=== PATIENT | male | born 1950 | race Caucasian/White ===

== ENCOUNTER 2017-12-27 20:05 | Observation (INO) | payer OTHER, BC ==
[2017-12-27] MEDS ORDERED: ASPIRIN 81 MG CHEWABLE TABLET ONE ×2 (21:10)
[2017-12-27 21:22] LABS: Absolute Lymphocytes (CBC) 1.8 K/uL (0.7-4.9); Absolute Monocytes 0.7 K/uL (0.1-1.3); Absolute Neutrophil 9.4 K/uL (1.8-8.0); Basophils % 0.5 % (0-1.3); Eosinophils % 0.3 % (0-4.4); Lymphocytes % 15.2 % (15.3-44.8); MCH 29.1 pg (27.0-35.0); MPV 9.8 fL (7.6-11.3); Monocytes % 6.1 % (3.3-12.3); RBC Red Blood Cell Count 5.64 M/uL (4.33-5.43)
[2017-12-27 21:24] LABS: Urine Blood 2+ (NEG); Urine Glucose NEGATIVE (NEG); Urine Protein NEGATIVE (NEG); Urine pH 5.5 (5.0-7.0)
[2017-12-27 21:34] LABS: Protime INR 1.07
--- NOTE | 2017-12-27 21:37 | RAD REPORT ---
EXAM DESCRIPTION: RAD - Chest Single View - 12/27/2017 9:21 pm CLINICAL HISTORY: SOB Chest pain. COMPARISON: No comparisons FINDINGS: Portable technique limits examination quality. The lungs are grossly clear. The heart is normal in size. No displaced fractures. IMPRESSION: No acute intrathoracic process suspected.
[2017-12-27 21:42] LABS: Albumin 4.4 g/dL (3.4-5.0); Bilirubin Direct 0.2 mg/dL (0-0.2); Bilirubin Total 0.5 mg/dL (0.2-1.0); CKMB Creatine Kinase MB 4.2 ng/mL (0.3-3.6); Magnesium 2.3 mg/dL (1.8-2.4); Potassium 4.1 mmol/L (3.5-5.1); Protein, Total 8.5 g/dL (6.4-8.2)
[2017-12-27] MEDS ORDERED: IPRATROPIUM BROM 0.5MG/2.5ML ONE (22:47)
[2017-12-27] MEDS ORDERED: ALBUTEROL 2.5 MG/3 ML NEB SOL ONE (22:47)
--- NOTE | 2017-12-28 01:02 | ER ---
Nurse's Notes [facility] Name: Lino Parker Age: 67 yrs Sex: Male : 1950 Arrival Date: 12/27/2017 Time: 20:10 Bed 27 Private MD: Diagnosis: Shortness of breath Presentation: 12/27 20:13 Presenting complaint: Patient states: Shortness of breath x 2 days. denies pain. Took a tl2 lasix this morning. Transition of care: patient was not received from another setting of care. Onset of symptoms was December 25, 2017. Risk Assessment: Do you want to hurt yourself or someone else? Patient reports no desire to harm self or others. Initial Sepsis Screen: Does the patient meet any 2 criteria? No. Patient's initial sepsis screen is negative. Does the patient have a suspected source of infection? No. Patient's initial sepsis screen is negative. Care prior to arrival: None. 20:13 Method Of Arrival: Ambulatory tl2 20:13 Acuity: ERNESTINE 3 tl2 Triage Assessment: 20:17 General: Appears in no apparent distress. comfortable, Behavior is calm, cooperative, tl2 appropriate for age. Pain: Denies pain. Respiratory: Reports shortness of breath Airway is patent Respiratory effort is even, unlabored, Respiratory pattern is regular, symmetrical, Onset: The symptoms/episode began/occurred yesterday, the patient has mild shortness of breath. Historical: - Allergies: 20:17 No Known Allergies; tl2 - Home Meds: 20:17 Januvia 100 mg Oral tab 1 tab once daily [Active]; tamsulosin 0.4 mg Oral cp24 1 cap tl2 BID [Active]; simvastatin 20 mg Oral tab 1 tab once daily [Active]; glipizide 10 mg Oral tab 1 tab once daily [Active]; finasteride 5 mg Oral tab 1 tab once daily [Active]; Lasix 80 mg Oral tab 1 tab PRN [Active]; - PMHx: 20:17 Diabetes - NIDDM; tl2 - PSHx: 20:17 None; tl2 - Immunization history:: Adult Immunizations up to date. - Social history:: Smoking status: Patient/guardian denies using tobacco. - Ebola Screening: : No symptoms or risks identified at this time. Screenin/25 01:34 Abuse screen: Denies threats or abuse. Denies injuries from another. Nutritional mg2 screening: No deficits noted. Tuberculosis screening: No symptoms or risk factors identified. Fall Risk Assessment: 12/27 20:55 General: Appears in no apparent distress. Behavior is calm. Pain: Complains of pain in cr4 right flank Pain does not radiate. Pain currently is 5 out of 10 on a pain scale. Quality of pain is described as aching, Pain began 2-3 days ago. Is continuous. Neuro: Level of Consciousness is awake, alert, obeys commands, Oriented to person, place, time, [employer] Supervisor are equal bilaterally Denies weakness blurred vision dizziness, difficulty swallowing, numbness headache. Cardiovascular: Reports shortness of breath, Denies chest pain, lightheadedness, nausea, palpitations, Heart tones S1 S2 Rhythm is regular. Respiratory: Airway is patent Respiratory effort is even, unlabored, Respiratory pattern is regular. Respiratory: Breath sounds are clear bilaterally. GI: Patient currently denies nausea, pain. : Denies burning with urination, discharge, incontinence. EENT: Denies pain blurred vision photophobia. Derm: No deficits noted. Musculoskeletal: No deficits noted. 22:00 Reassessment: No changes from previously documented assessment. Patient and/or family cr4 updated on plan of care and expected duration. Pain level reassessed. Patient is alert, oriented x 3, equal unlabored respirations, skin warm/dry/pink. 23:00 Reassessment: Patient stated he was feeling more SOB, patient had to get up and sit in cr4 chair. SOB improved slightly sats remained 93-95%.Carlo Page notified.. 12/28 01:04 Reassessment: Patient appears in no apparent distress at this time. Patient and/or mg2 family updated on plan of care and expected duration. Pain level reassessed. Patient is alert, oriented x 3, equal unlabored respirations, skin warm/dry/pink. 01:32 Reassessment: Patient appears in no apparent distress at this time. Patient and/or mg2 family updated on plan of care and expected duration. Pain level reassessed. Patient is alert, oriented x 3, equal unlabored respirations, skin warm/dry/pink. dr wang at bedside examining the patient. 02:11 Reassessment: Patient appears in no apparent distress at this time. Patient and/or mg2 family updated on plan of care and expected duration. Pain level reassessed. Patient is alert, oriented x 3, equal unlabored respirations, skin warm/dry/pink. Vital Signs: 12/27 20:17 BP 155 / 109; Pulse 108; Resp 20; Temp 98.5; Pulse Ox 97% on R/A; Weight 102.06 kg; tl2 Height 5 ft. 7 in. (170.18 cm); Pain 0/10; 22:00 BP 157 / 92 LA Sitting (auto/reg); Pulse 83 MON; Resp 22 S; Pulse Ox 90% on R/A; Pain jp3 0/10; 23:15 BP 163 / 83; Pulse 94; Pulse Ox 94% ; Pain 3/10; cr4 12/28 01:04 Pulse 95; Resp 18; Pulse Ox 98% on R/A; Pain 0/10; mg2 01:33 BP 154 / 109; Pulse 101; Resp 18; Pulse Ox 97% on R/A; Pain 0/10; mg2 02:12 BP 140 / 86; Pulse 101; Resp 18; Temp 97.8(O); Pain 0/10; mg2 12/27 20:17 Body Mass Index 35.24 (102.06 kg, 170.18 cm) tl2 ED Course: 12/27 20:10 Patient arrived in ED. es 20:15 Triage completed. tl2 20:17 Arm band placed on right wrist. tl2 20:54 Carlo Landeros PA is PHCP. cp 20:54 Carlo Baumann MD is Attending Physician. cp 21:04 Austin Romero, YOLANDE is Primary Nurse. mg2 21:17 XRAY Chest (1 view) In Process Unspecified. EDMS 21:17 Inserted saline lock: 20 gauge in right forearm, using aseptic technique. Blood tl2 collected. 21:48 Urine Dipstick--Ancillary (enter results) Sent. jp3 23:46 Radiology exam delayed due to Labs being drawn at this time. kw1 12/28 00:[address] via wheelchair. kw1 00:09 CT completed. Patient tolerated procedure well. Patient moved back from CT. kw1 00:11 CT Chest For PE Angio In Process Unspecified. EDMS 01:01 Matt Guevara MD is Hospitalizing Provider. cp 01:34 Patient has correct armband on for positive identification. Bed in low position. mg2 02:10 No provider procedures requiring assistance completed. Patient admitted, IV remains in mg2 place. Administered Medications: 12/27 21:27 Drug: Aspirin Chewable Tablet 324 mg Route: PO; cr4 12/28 00:26 Follow up: Response: No adverse reaction mg2 12/27 22:48 Drug: Albuterol - atroVENT (3:1) (2.5 mg - 0.5 mg) 3 ml Route: Nebulizer; cr4 23:58 Follow up: Response: Other cr4 12/28 01:30 Drug: Lovenox 40 mg Route: Sub-Q; Site: left lower abdomen; mg2 02:08 Follow up: Response: No adverse reaction mg2 Outcome: 01:01 Decision to Hospitalize by Provider. cp 02:11 Admitted to Med/surg accompanied by tech, via wheelchair, room 205, with chart, Report mg2 called to YOLANDE Bales 02:11 Condition: stable 02:11 Instructed on the need for admit, Demonstrated understanding of instructions. 02:29 Patient left the ED. mg2 Signatures: Dispatcher [employer] Olive Motta Claudia, RN RN cr4 Carlo Landeros PA PA Dina Poole, RN RN tl2 Alexus Valladares kw1 Austin Romero, YOLANDE RN mg2 Lenny Weiner jp3
--- NOTE | 2017-12-28 01:02 | EDPHYS ---
Physician Documentation [facility] Name: Lino Parker Age: 67 yrs Sex: Male : 1950 Arrival Date: 12/27/2017 Time: 20:10 Bed 27 Private MD: ED Physician Carlo Baumann HPI: 12/27 21:15 This 67 yrs old Male presents to ER via Ambulatory with complaints of cp Breathing Difficulty. 21:15 The patient has shortness of breath at rest. cp 21:15 Onset: The symptoms/episode began/occurred 2 day(s) ago. Duration: The symptoms are cp continuous, and are steadily getting worse. Associated signs and symptoms: Pertinent negatives: chest pain, productive cough, diaphoresis, dizziness, fever, hemoptysis, vomiting. Severity of symptoms: in the emergency department the symptoms are unchanged despite home interventions, took previously prescribed Lasix. Historical: - Allergies: 20:17 No Known Allergies; tl2 - Home Meds: 20:17 Januvia 100 mg Oral tab 1 tab once daily [Active]; tamsulosin 0.4 mg Oral cp24 1 cap tl2 BID [Active]; simvastatin 20 mg Oral tab 1 tab once daily [Active]; glipizide 10 mg Oral tab 1 tab once daily [Active]; finasteride 5 mg Oral tab 1 tab once daily [Active]; Lasix 80 mg Oral tab 1 tab PRN [Active]; - PMHx: 20:17 Diabetes - NIDDM; tl2 - PSHx: 20:17 None; tl2 - Immunization history:: Adult Immunizations up to date. - Social history:: Smoking status: Patient/guardian denies using tobacco. - Ebola Screening: : No symptoms or risks identified at this time. ROS: 21:20 Constitutional: Negative for body aches, chills, fever, poor PO intake. cp 21:20 Eyes: Negative for injury, pain, redness, and discharge. cp 21:20 ENT: Negative for drainage from ear(s), ear pain, sore throat, difficulty swallowing, difficulty handling secretions. 21:20 Cardiovascular: Negative for chest pain, edema, palpitations. 21:20 Respiratory: Positive for orthopnea, shortness of breath, at rest. Negative for cough, wheezing. 21:20 Abdomen/GI: Negative for abdominal pain, nausea, vomiting, and diarrhea, black/tarry stool, rectal bleeding. 21:20 Back: Negative for pain at rest, pain with movement, radiated pain. 21:20 : Negative for urinary symptoms. 21:20 Skin: Negative for cellulitis, rash. 21:20 Neuro: Negative for altered mental status, dizziness, headache, syncope, near syncope, weakness. 21:20 All other systems are negative. Exam: 21:28 Constitutional: The patient appears in no acute distress, alert, awake, comfortable, cp non-diaphoretic, non-toxic, well developed, well nourished. 21:28 Head/Face: Normocephalic, atraumatic. Eyes: Pupils equal round and reactive to light, cp extra-ocular motions intact. Lids and lashes normal. Conjunctiva and sclera are non-icteric and not injected. Cornea within normal limits. Periorbital areas with no swelling, redness, or edema. ENT: Nares patent. No nasal discharge, no septal abnormalities noted. Tympanic membranes are normal and external auditory canals are clear. Oropharynx with no redness, swelling, or masses, exudates, or evidence of obstruction, uvula midline. Mucous membranes moist. Chest/axilla: Normal chest wall appearance and motion. Nontender with no deformity. No lesions are appreciated. 21:28 Cardiovascular: Rate: tachycardic, Rhythm: regular, Pulses: Pulses are 2+ in right radial artery and left radial artery. Heart sounds: murmur, not appreciated, Edema: is not appreciated, JVD: is not appreciated. 21:28 Respiratory: the patient does not display signs of respiratory distress, Respirations: labored breathing, is not present, intercostal retractions, are absent, shallow respirations, are not present, splinting, is not noted, tachypnea, is not appreciated, Breath sounds: rales, are not appreciated, decreased breath sounds, that are mild, are located in both bases, rhonchi, are not appreciated, stridor, is not appreciated. 21:28 Abdomen/GI: Inspection: abdomen appears normal, Bowel sounds: active, all quadrants, Palpation: abdomen is soft and non-tender, in all quadrants. 21:28 Back: pain, is absent, ROM is normal. 21:28 Skin: cellulitis, is not appreciated, no rash present. 21:28 Neuro: Orientation: to person, place \T\ time. Mentation: lucid, able to follow commands, Cerebellar function: is grossly normal, Motor: moves all fours, strength is normal, Sensation: is normal. 21:33 ECG was reviewed by the Attending Physician. cp Vital Signs: 20:17 BP 155 / 109; Pulse 108; Resp 20; Temp 98.5; Pulse Ox 97% on R/A; Weight 102.06 kg; tl2 Height 5 ft. 7 in. (170.18 cm); Pain 0/10; 22:00 BP 157 / 92 LA Sitting (auto/reg); Pulse 83 MON; Resp 22 S; Pulse Ox 90% on R/A; Pain jp3 0/10; 23:15 BP 163 / 83; Pulse 94; Pulse Ox 94% ; Pain 3/10; cr4 12/28 01:04 Pulse 95; Resp 18; Pulse Ox 98% on R/A; Pain 0/10; mg2 01:33 BP 154 / 109; Pulse 101; Resp 18; Pulse Ox 97% on R/A; Pain 0/10; mg2 02:12 BP 140 / 86; Pulse 101; Resp 18; Temp 97.8(O); Pain 0/10; mg2 12/27 20:17 Body Mass Index 35.24 (102.06 kg, 170.18 cm) tl2 MDM: 12/27 20:57 Patient medically screened. [facility] 12/28 00:55 Data reviewed: vital signs, nurses notes, lab test result(s), EKG, radiologic studies, cp CT scan, plain films, and as a result, I will admit patient. 00:55 Physician consultation: Matt Guevara MD was contacted at 00:55, regarding admission, cp to the telemetry unit. patient's condition. 12/27 20:59 Order name: Basic Metabolic Panel; Complete Time: 22:37 cp 12/27 23:13 Interpretation: Normal except: GLUC 165; GFR 67. 12/27 20:59 Order name: CBC with Diff; Complete Time: 22:37 cp 12/27 20:59 Order name: Ckmb; Complete Time: 22:37 cp 12/27 20:59 Order name: CPK; Complete Time: 22:37 12/27 20:59 Order name: LFT's; Complete Time: 22:37 12/27 20:59 Order name: Magnesium; Complete Time: 22:37 cp 12/27 20:59 Order name: NT PRO-BNP; Complete Time: 22:37 cp 12/27 20:59 Order name: PT-INR; Complete Time: 22:37 cp 12/27 20:59 Order name: Ptt, Activated; Complete Time: 22:37 cp 12/27 20:59 Order name: Troponin (emerg Dept Use Only); Complete Time: 22:37 cp 12/27 20:59 Order name: XRAY Chest (1 view); Complete Time: 22:37 cp 12/27 21:22 Order name: Urine Dipstick--Ancillary (enter results) mw2 12/27 21:22 Order name: Urine Dipstick-Ancillary; Complete Time: 22:37 EDMS 12/27 20:59 Order name: EKG; Complete Time: 20:59 cp 12/27 20:59 Order name: Cardiac monitoring; Complete Time: 21:22 cp 12/27 20:59 Order name: EKG - Nurse/Tech; Complete Time: 21:48 cp 12/27 20:59 Order name: IV Saline Lock; Complete Time: 21:16 cp 12/27 20:59 Order name: Labs collected and sent; Complete Time: 21:17 cp 12/27 20:59 Order name: O2 Per Protocol; Complete Time: 21:17 cp 12/27 20:59 Order name: O2 Sat Monitoring; Complete Time: 21:17 cp 12/27 20:59 Order name: Urine Dipstick-Ancillary (obtain specimen); Complete Time: 21:17 cp 12/27 23:28 Order name: CT Chest For PE Angio cp EC/24 21:33 Rate is 85 beats/min. Rhythm is regular. HI interval is normal. QRS interval is cp prolonged at 130 msec. QT interval is normal. T waves are Inverted in leads III, V3. Interpreted by me. Reviewed by me. Administered Medications: 21:27 Drug: Aspirin Chewable Tablet 324 mg Route: PO; cr4 12/28 00:26 Follow up: Response: No adverse reaction mg2 12/27 22:48 Drug: Albuterol - atroVENT (3:1) (2.5 mg - 0.5 mg) 3 ml Route: Nebulizer; cr4 23:58 Follow up: Response: Other cr4 12/28 01:30 Drug: Lovenox 40 mg Route: Sub-Q; Site: left lower abdomen; mg2 02:08 Follow up: Response: No adverse reaction mg2 Disposition: 12/28/17 01:01 Hospitalization ordered by Matt Guevara for Observation. Preliminary diagnosis is Shortness of breath. - Bed requested for Telemetry/MedSurg (observation). - Status is Observation. mg2 - Condition is Stable. - Problem is new. - Symptoms are unchanged. UTI on Admission? No Addendum: 12/30/2017 06:35 Co-signature as Attending Physician, Carlo Baumann MD I agree with the assessment and c travis plan of care. Signatures: Dispatcher [employer] EDDC Alexus Guy, RN RN Carlo Carroll MD MD cha Ruiz, Claudia, RN RN cr4 Carlo Landeros PA PA Dina Poole RN RN tl2 Austin Romero RN RN mg2 Corrections: (The following items were deleted from the chart) 12/27 23:32 23:26 D-DIMER+COAG.LAB.BRZ ordered. EDDC EDDC 23:32 23:27 D-DIMER+COAG.LAB.BRZ reviewed. EDDC 12/28 01:57 01:01 Hospitalization Ordered by Matt Guevara MD for Observation. Preliminary kl diagnosis is Shortness of breath. Bed requested for Telemetry/MedSurg (observation). Status is Observation. Condition is Stable. Problem is new. Symptoms are unchanged. UTI on Admission? No. cp 02:29 01:57 12/28/2017 01:01 Hospitalization Ordered by Matt Guevara MD for Observation. mg2 Preliminary diagnosis is Shortness of breath. Bed requested for Telemetry/MedSurg (observation). Status is Observation. Condition is Stable. Problem is new. Symptoms are unchanged. UTI on Admission? No. kl
[2017-12-28] MEDS ORDERED: ENOXAPARIN 40 MG/0.4 ML SQ ONE (01:21)
[2017-12-28] MEDS ORDERED: IPRATROPIUM BROM 0.5MG/2.5ML NEB PRN (01:39)
[2017-12-28] MEDS ORDERED: ONDANSETRON 4 MG/2 ML VIAL IV PRN (01:39)
[2017-12-28] MEDS ORDERED: ALBUTEROL 2.5 MG/3 ML NEB SOL NEB PRN (01:39)
[2017-12-28] MEDS ORDERED: ACETAMINOPHEN 500 MG TAB PO PRN (01:39)
--- NOTE | 2017-12-28 01:48 | P.HP ---
Certification for Inpatient Patient admitted to: Observation With expected LOS: <2 Midnights Practitioner: I am a practitioner with admitting privileges, knowledge of patient current condition, hospital course, and medical plan of care. Services: Services provided to patient in accordance with Admission requirements found in Title 42 Section 412.3 of the Code of Federal Regulations Patient History Date of Service: 12/28/17 Reason for admission: Dyspnea History of Present Illness: Mr Parker is a 67-year-old male with history of diabetes mellitus types 2, obesity, ADRIANO, who start about 2 days ago with progressive shortness of breath. He denied any chest pain, cough, nausea or vomiting. His symptoms did worse when he ambulate. The patient states that he had this problem in the past, he took Lasix and fixed the problem. Workup in ER revealed normal WBC count, O2 sat was 90% on room air, chest-x-ray showed no acute abnormality, EKG right bundle branch block, sinus at [address] angio chest showed no PE. Allergies No Known Allergies Allergy (Unverified 08/07/16 18:26) Home medications list reviewed: Yes - Past Medical/Surgical History -: Obesity -: Diabetes mellitus -: ADRIANO Past Surgical History: Reviewed- Non-Contributory - Family History Family History: Reviewed- Non-Contributory - Social History Smoking Status: Never smoker Alcohol use: No CD- Drugs: No Place of Residence: Home Review of Systems 10-point ROS is otherwise unremarkable Physical Examination - Physical Exam General: Alert, In no apparent distress HEENT: Atraumatic, PERRLA, Mucous membr. moist/pink, EOMI, Sclerae nonicteric Neck: Supple, 2+ carotid pulse no bruit, No LAD, Without JVD or thyroid abnormality Respiratory: Clear to auscultation bilaterally, Normal air movement Cardiovascular: Regular rate/rhythm, Normal S1 S2 Gastrointestinal: Normal bowel sounds, No tenderness Musculoskeletal: No tenderness Integumentary: No rashes Neurological: Normal gait, Normal speech, Normal strength at 5/5 x4 extr, Normal tone, Normal affect Lymphatics: No axilla or inguinal lymphadenopathy - Studies Laboratory Data (last 24 hrs) 12/27/17 21:13: PT 12.6 H, INR 1.07, APTT 26.6 12/27/17 21:13: WBC 12.1 H, Hgb 16.4, Hct 49.0, Plt Count 225 12/27/17 21:13: Sodium 138, Potassium 4.1, BUN 15, Creatinine 1.10, Glucose 165 H, Magnesium 2.3, Total Bilirubin 0.5, AST 34, ALT 82 H, Alkaline Phosphatase 63 Assessment and Plan - Problems (Diagnosis) (1) Diabetes mellitus Current Visit: Yes Status: Acute Qualifiers: Diabetes mellitus type: type 2 Diabetes mellitus snf insulin use: without watermelon inspector use Diabetes mellitus complication status: with unspecified complications Qualified Code(s): E11.8 - Type 2 diabetes mellitus with unspecified complications (2) Obesity Current Visit: Yes Status: Acute Qualifiers: Obesity type: unspecified obesity type Obesity classification: unspecified obesity classification Serious obesity comorbidity presence: unspecified whether serious comorbidity present Qualified Code(s): E66.9 - Obesity, unspecified (3) ADRIANO (obstructive sleep apnea) Current Visit: Yes Status: Acute (4) Dyspnea Current Visit: Yes Status: Acute Qualifiers: Dyspnea type: dyspnea on exertion Qualified Code(s): R06.09 - Other forms of dyspnea - Plan The patient will be admitted to the hospital due to dyspnea. The etiology is still unclear, CT and a showed no PE or infiltrate. At physical exam, his lungs sounds clear. He has right bundle branch block on EKG, unknown if his new , consider pulmonary hypertension secondary to ADRIANO as part of differential diagnosis. Will order an echocardiogram to evaluate cardiac function. Consult Dr. Mcneill for evaluation recommendation. - Advance Directives Does patient have a Living Will: No Does patient have a Durable POA for Healthcare: No - Code Status/Comfort Care Code Status Assessed: Yes Code Status: Full Code
[2017-12-28 02:35] VITALS: BMI 35.6
[2017-12-28] MEDS: FUROSEMIDE 40 MG/4 ML VIAL IV SCH ×2 (02:53→08:21)
[2017-12-28] MEDS ORDERED: LORAZEPAM 0.5 MG TABLET PO ONE (06:08)
[2017-12-28] MEDS: INSULIN -REGULAR HUMAN 50 UNIT/0.5 ML ML SQ SCH ×2 (07:30→11:30)
--- NOTE | 2017-12-28 07:54 | P.PN ---
Subjective Date of Service: 12/28/17 Primary Care Provider: From [place] Chief Complaint: Dyspnea Subjective: Improving (Note shortness of breath. Responded well to diuretic therapy and anxiety medication.) Physical Examination - Vital Signs Temperature: 97.1 F Blood Pressure: 127/74 Pulse: 79 Respirations: 18 Pulse Ox (%): 96 - Physical Exam General: Alert, In no apparent distress, Oriented x3, Cooperative HEENT: Atraumatic Neck: Supple Respiratory: Clear to auscultation bilaterally, Normal air movement Cardiovascular: Normal pulses, Regular rate/rhythm Gastrointestinal: Normal bowel sounds, Soft and benign, Non-distended, No tenderness, No masses, No rebound, No guarding Musculoskeletal: No erythema, No tenderness, No warmth Integumentary: No tenderness/swelling, No erythema, No warmth, No cyanosis Neurological: Normal speech, Normal strength at 5/5 x4 extr, Normal tone, Normal affect Lymphatics: No axilla or inguinal lymphadenopathy - Studies Laboratory Data (last 24 hrs) 12/27/17 21:13: PT 12.6 H, INR 1.07, APTT 26.6 12/27/17 21:13: WBC 12.1 H, Hgb 16.4, Hct 49.0, Plt Count 225 12/27/17 21:13: Sodium 138, Potassium 4.1, BUN 15, Creatinine 1.10, Glucose 165 H, Magnesium 2.3, Total Bilirubin 0.5, AST 34, ALT 82 H, Alkaline Phosphatase 63 Medications List Reviewed: Yes Assessment & Plan - Problems (Diagnosis) (1) Anxiety Current Visit: Yes Status: Suspected Plan: Patient was given medication this morning and responded well. Patient may require medication at discharge. (2) Pulmonary hypertension Current Visit: Yes Status: Suspected Plan: Patient came in with shortness of breath. Patient has use Lasix in the past. Patient was given Lasix last night. CT scan unremarkable. Blood pressure also elevated last night. Pulmonology to evaluate patient. Echocardiogram ordered. Patient appears to be at his baseline level. Anticipate discharge if okay with pulmonology. Patient will likely need DAVID-inhibitor and diuretic therapy at discharge. (3) Diabetes mellitus Current Visit: Yes Status: Chronic Plan: Will check A1c. Patient takes insulin therapy at home. Qualifiers: Diabetes mellitus type: type 2 Diabetes mellitus long-term insulin use: with long-term use Diabetes mellitus complication status: with other specified complication Qualified Code(s): E11.69 - Type 2 diabetes mellitus with other specified complication; Z79.4 - FPC (current) use of insulin (4) Dyspnea Current Visit: Yes Status: Acute Plan: Shortness of breath likely for pulmonary hypertension. Continue as above. Await recommendations by pulmonology. CT scan unremarkable. Patient will likely need Lasix and DAVID-inhibitor at discharge. Qualifiers: Dyspnea type: dyspnea on exertion Qualified Code(s): R06.09 - Other forms of dyspnea (5) ADRIANO (obstructive sleep apnea) Current Visit: Yes Status: Chronic Plan: Patient has CPAP machine at home. (6) Obesity Current Visit: Yes Status: Chronic Plan: Will address lifestyle modification education. Qualifiers: Obesity type: due to excess calories Obesity classification: adult class 2 (BMI 35 - 39.9) Serious obesity comorbidity presence: with serious comorbidity Body mass index: BMI 35.0-35.9 Qualified Code(s): E66.01 - Morbid (severe) obesity due to excess calories; Z68.35 - Body mass index (BMI) 35.0-35.9, adult (7) BPH (benign prostatic hyperplasia) Current Visit: Yes Status: Chronic Plan: Will continue with his medication Qualifiers: Lower urinary tract symptom presence: unspecified whether lower urinary tract symptoms present Qualified Code(s): N40.0 - Benign prostatic hyperplasia without lower urinary tract symptoms (8) Elevated liver function tests Current Visit: Yes Status: Acute Plan: Slight elevation in his liver function test. Patient may have underlying fatty liver. Will send for hepatitis panel. This can be followed up as an outpatient. Discharge Plan: Home Plan to discharge in: 24 Hours Time Spent Managing Pts Care (In Minutes): 55
--- NOTE | 2017-12-28 08:30 | EKG ---
Test Date: 2017-12-27 Test Time: 21:25:44 Material Dispatcher: MG MEASUREMENT RESULTS: Intervals: Rate: 85 WV: 154 QRSD: 130 QT: 396 QTc: 471 [place]: P: 49 WV: 154 QRS: 79 T: 14 INTERPRETIVE STATEMENTS: Normal sinus rhythm Right bundle branch block Abnormal ECG No previous ECG available for comparison Electronically Signed On 12-28-17 08:30:00 CDT by Javan Huffman
[2017-12-28 08:36] LABS: Thyroid Stimulating Hormone 2.24 uIU/mL (0.36-3.74)
[2017-12-28] MEDS ORDERED: SITAGLIPTIN PHOS 100 MG TAB PO SCH (09:00)
[2017-12-28] MEDS ORDERED: FINASTERIDE 5 MG TAB PO SCH (09:00)
[2017-12-28] MEDS ORDERED: ENOXAPARIN 40 MG/0.4 ML SQ SCH (09:00)
[2017-12-28 09:29] VITALS: O2SAT 97
[2017-12-28] MEDS ORDERED: ALPRAZOLAM 0.25 MG TABLET PO PRN (10:26)
--- NOTE | 2017-12-28 10:38 | RAD REPORT ---
EXAM DESCRIPTION: CT - Chest For Pe Angio - 12/28/2017 4:27 am CLINICAL HISTORY: Shortness of breath for 2 days COMPARISON: None. TECHNIQUE: Dynamically enhanced axial 3 mm thick images of the chest were obtained during administra tion of <100> mL Isovue 370 IV contrast. Coronal and oblique reconstruction images were generated and reviewed. Exam utilizes a protocol for optimal evaluation of pulmonary arterial tree. Preliminary re port was generated by virtual radiologic a review prior to this dictation Maximum intensity projections 3D imaging was utilized All CT scans are performed using dose optimization technique as appropriate and may include automated exposure control or mA/KV adjustment according to patient size. FINDINGS: A pulmonary embolus is not seen. A thoracic aortic aneurysm is not noted. An 11 millimeter right paratracheal lymph node is present A pleural effusion is not seen. A pericardial effusion is not seen. A 28 millimeter nodule is present within the left lobe of the thyroid gland A lung consolidation is not present. Fatty infiltration liver is seen. IMPRESSION: Negative for a pulmonary embolism. 11 millimeter right paratracheal lymph node is nonspecific. A followup CT chest in 3 months would be helpful to assess stability 28 millimeter nodule within the left lobe of thyroid gland. Ultrasound is recommended
[2017-12-28 12:51] LABS: Barbiturates NEGATIVE (NEGATIVE); Benzodiazepines NEGATIVE (NEGATIVE); Cocaine NEGATIVE (NEGATIVE); METHAMPHETAM NEGATIVE (NEGATIVE); Methadone NEGATIVE (NEGATIVE); Opiates NEGATIVE (NEGATIVE); Phencyclidine NEGATIVE (NEGATIVE); THC Cannibis NEGATIVE (NEGATIVE)
--- NOTE | 2017-12-28 13:45 | P.DS ---
Admission Date: 12/28/17 Discharge Date: 12/28/17 Primary Care Provider: From [place] Disposition: ROUTINE DISCHARGE Discharge Condition: GOOD Reason for Admission: Dyspnea Procedures: CT angiogram: COMPARISON: None. TECHNIQUE: Dynamically enhanced axial 3 mm thick images of the chest were obtained during administration of <100> mL Isovue 370 IV contrast. Coronal and oblique reconstruction images were generated and reviewed. Exam utilizes a protocol for optimal evaluation of pulmonary arterial tree. Preliminary report was generated by virtual radiologic a review prior to this dictation Maximum intensity projections 3D imaging was utilized All CT scans are performed using dose optimization technique as appropriate and may include automated exposure control or mA/KV adjustment according to patient size. FINDINGS: A pulmonary embolus is not seen. A thoracic aortic aneurysm is not noted. An 11 millimeter right paratracheal lymph node is present A pleural effusion is not seen. A pericardial effusion is not seen. A 28 millimeter nodule is present within the left lobe of the thyroid gland A lung consolidation is not present. Fatty infiltration liver is seen. IMPRESSION: Negative for a pulmonary embolism. 11 millimeter right paratracheal lymph node is nonspecific. A followup CT chest in 3 months would be helpful to assess stability 28 millimeter nodule within the left lobe of thyroid gland. 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 Diabetes mellitus complication status: with other specified complication Qualified Code(s): E11.69 - Type 2 diabetes mellitus with other specified complication; Z79.4 - USP (current) use of insulin (4) Dyspnea Current Visit: Yes Status: Acute Qualifiers: Dyspnea type: dyspnea on exertion Qualified Code(s): R06.09 - Other forms of dyspnea (5) ADRIANO (obstructive sleep apnea) Current Visit: Yes Status: Chronic (6) Obesity Current Visit: Yes Status: Chronic Qualifiers: Obesity type: due to excess calories Obesity classification: adult class 2 (BMI 35 - 39.9) Serious obesity comorbidity presence: with serious comorbidity Body mass index: BMI 35.0-35.9 Qualified Code(s): E66.01 - Morbid (severe) obesity due to excess calories; Z68.35 - Body mass index (BMI) 35.0-35.9, adult (7) BPH (benign prostatic hyperplasia) Current Visit: Yes Status: Chronic Qualifiers: Lower urinary tract symptom presence: unspecified whether lower urinary tract symptoms present Qualified Code(s): N40.0 - Benign prostatic hyperplasia without lower urinary tract symptoms (8) Elevated liver function tests Current Visit: Yes Status: Acute (9) Lymphadenopathy Current Visit: Yes Status: Acute (10) Thyroid nodule Current Visit: Yes Status: Acute Brief History of Present Illness: 67-year-old male presented emergency room with increasing shortness of breath. Patient was evaluated the emergency room. Patient with history of diabetes. Patient was admitted for further evaluation. Hospital Course: Patient presented with shortness of breath. CT scan showed no pulmonary embolism. CT scan did show other abnormalities including 11 mm right peritracheal lymph node that was nonspecific. A 28 mm nodule within the left lower lobe of the thyroid gland was also noted. During the course of his stay patient did receive diuretic therapy. He apparently had taking diuretic therapy in the past. Patient also received anxiolytic medication for anxiety. Shortness of breath resolved. Shortness of breath likely multifactorial with possible underlying pulmonary hypertension/CHF. Echocardiogram could not be done. At discharge patient will continue with a 1500 cc per day fluid restriction and low-salt diet. At discharge he will continue with Lasix 20 mg daily. He is to monitor his weight daily. If his weight increases by more than 5 lb he is to contact his PCP for further recommendation. Further adjustment in his diuretic medication may be required. Recommendation is for the patient to follow up with pulmonology and cardiology to further assess and evaluate. Recommendations for the patient to have an echocardiogram to evaluate for possible underlying pulmonary hypertension/CHF. Due to the abnormal CT scan showing 11 mm right peritracheal lymph node, it is recommended that he have a repeat CT scan in 3 months to monitor stability. Recommendations for the patient to follow up with pulmonology to further assess. For the CT abnormality showing 28 mm nodule within the left lower lobe of the thyroid gland, it is recommended that he have an outpatient thyroid ultrasound to further evaluate. Patient may require ENT evaluation further assess as well. This may require fine-needle aspiration and biopsy. Tsh was slightly abnormal. Recommendation to recheck tsh and free T4 in 4-6 weeks. Further evaluation can be done by his PCP. Patient has diabetes. Patient will continue with his medications including Januvia 100 mg daily, glipizide 10 mg 1 pill twice daily, and Toujeo 72 units subcu every day. Recommendation is to maintain blood sugars less 140 fasting and less than 200 after meals. Further adjustment can be done by his PCP. Patient had elevated blood pressure. Patient was given medication in the hospital. Blood pressure remained stable on medication. Patient likely has underlying pulmonary hypertension. At discharge he will continue with lisinopril 5 mg daily. Recommendation is to maintain blood pressures less 150/ 80. Further adjustment can be done by his PCP. Patient has Hyperlipidemia. Patient will continue with Zocor 20 mg 1 pill daily. Patient has BPH. Patient will continue with Flomax 0.4 mg daily and finasteride 5 mg 1 pill daily. Patient has obstructive sleep apnea. Patient will continue with CPAP at night. Recommendation is for the patient to follow up with pulmonology to further assess. For anxiety the patient will be given a limited supply of Xanax 0.25 mg 1 pill daily as needed for anxiety. Recommendation is for the patient follow up with his PCP to further evaluate. Vital Signs/Physical Exam: Temp Pulse Resp BP Pulse Ox 97.5 F 81 20 120/78 97 12/28/17 08:00 12/28/17 08:21 12/28/17 08:00 12/28/17 08:21 12/28/17 08:00 General: Alert, In no apparent distress, Oriented x3, Cooperative HEENT: Atraumatic Neck: Supple Respiratory: Clear to auscultation bilaterally, Normal air movement Cardiovascular: Normal pulses, Regular rate/rhythm Gastrointestinal: Normal bowel sounds, Soft and benign, Non-distended, No tenderness, No masses, No rebound, No guarding Musculoskeletal: No erythema, No tenderness, No warmth Integumentary: No tenderness/swelling, No erythema, No warmth, No cyanosis Neurological: Normal speech, Normal strength at 5/5 x4 extr, Normal tone, Normal affect Lymphatics: No axilla or inguinal lymphadenopathy Laboratory Data at Discharge: WBC 12.1 K/uL (4.3-10.9) H 12/27/17 21:13 Hgb 16.4 g/dL (13.6-17.9) 12/27/17 21:13 Hct 49.0 % (39.6-49.0) 08/24/18 21:13 Plt Count 225 K/uL (152-406) 12/27/17 21:13 PT 12.6 SECONDS (9.5-12.5) H 12/27/17 21:13 INR 1.07 12/27/17 21:13 APTT 26.6 SECONDS (24.3-36.9) 12/27/17 21:13 Sodium 138 mmol/L (136-145) 12/27/17 21:13 Potassium 4.1 mmol/L (3.5-5.1) 12/27/17 21:13 BUN 15 mg/dL (7-18) 12/27/17 21:13 Creatinine 1.10 mg/dL (0.55-1.3) 12/27/17 21:13 Glucose 165 mg/dL (74-106) H 12/27/17 21:13 Magnesium 2.3 mg/dL (1.8-2.4) 12/27/17 21:13 Total Bilirubin 0.5 mg/dL (0.2-1.0) 12/27/17 21:13 AST 34 U/L (15-37) 12/27/17 21:13 ALT 82 U/L (12-78) H 12/27/17 21:13 Alkaline Phosphatase 63 U/L (45-117) 12/27/17 21:13 Triglycerides 138 mg/dL (<150) 12/28/17 08:00 Cholesterol 193 mg/dL (<200) 12/28/17 08:00 HDL Cholesterol 35 mg/dL (40-60) L 12/28/17 08:00 Cholesterol/HDL Ratio 5.51 12/28/17 08:00 Home Medications: ALPRAZolam [Xanax] 0.25 mg PO DAILY PRN #5 tab 12/28/17 Finasteride 5 mg PO DAILY 12/28/17 Furosemide [Lasix] 20 mg PO DAILY #30 tab 12/28/17 Insulin Glargine,Hum.rec.anlog [Toujeo Solostar] 72 units PO DAILY 12/28/17 Lisinopril [Prinivil*] 5 mg PO BEDTIME #30 tab 12/28/17 Simvastatin 20 mg PO BEDTIME 12/28/17 Sitagliptin Phosphate [Januvia*] 100 mg PO DAILY 12/28/17 Tamsulosin [Flomax*] 0.4 mg PO BEDTIME 12/28/17 glipiZIDE [Glipizide] 10 mg PO BID 12/28/17 New Medications: ALPRAZolam [Xanax] 0.25 mg PO DAILY PRN #5 tab PRN Reason: Anxiety Furosemide [Lasix] 20 mg PO DAILY #30 tab Lisinopril [Prinivil*] 5 mg PO BEDTIME #30 tab Patient Discharge Instructions: 1. Patient will need a follow up with his PCP in 1 week to follow up this hospitalization. 2. Patient presented with shortness of breath. CT scan showed no pulmonary embolism. CT scan did show other abnormalities including 11 mm right peritracheal lymph node that was nonspecific. A 28 mm nodule within the left lower lobe of the thyroid gland was also noted. During the course of his stay patient did receive diuretic therapy. Shortness of breath resolved. Shortness of breath likely multifactorial with possible underlying pulmonary hypertension/CHF. Echocardiogram could not be done. At discharge patient will continue with a 1500 cc per day fluid restriction and low-salt diet. At discharge he will continue with Lasix 20 mg daily. He is to monitor his weight daily. If his weight increases by more than 5 lb he is to contact his PCP for further recommendation. Further adjustment in his diuretic medication may be required. Recommendation is for the patient to follow up with pulmonology and cardiology to further assess and evaluate. Recommendations for the patient to have an echocardiogram to evaluate for possible underlying pulmonary hypertension/CHF. 3. Due to the abnormal CT scan showing 11 mm right peritracheal lymph node, it is recommended that he have a repeat CT scan in 3 months to monitor stability. Recommendations for the patient to follow up with pulmonology to further assess. 4. For the CT abnormality showing 28 mm nodule within the left lower lobe of the thyroid gland, it is recommended that he have an outpatient thyroid ultrasound to further evaluate. Patient may require ENT evaluation further assess as well. This may require fine-needle aspiration and biopsy. Tsh was slightly abnormal. Recommendation to recheck tsh and free T4 in 4-6 weeks. Further evaluation can be done by his PCP. 5. Patient has diabetes. Patient will continue with his medications including Januvia 100 mg daily, glipizide 10 mg 1 pill twice daily, and Toujeo 72 units subcu every day. Recommendation is to maintain blood sugars less 140 fasting and less than 200 after meals. Further adjustment can be done by his PCP. 6. Patient had elevated blood pressure. Patient was given medication in the hospital. Blood pressure remained stable on medication. Patient likely has underlying pulmonary hypertension. At discharge he will continue with lisinopril 5 mg daily. Recommendation is to maintain blood pressures less 150/80. Further adjustment can be done by his PCP. 7. Patient has Hyperlipidemia. Patient will continue with Zocor 20 mg 1 pill daily. 8. Patient has BPH. Patient will continue with Flomax 0.4 mg daily and finasteride 5 mg 1 pill daily. 9. Patient has obstructive sleep apnea. Patient will continue with CPAP at night. Recommendation is for the patient to follow up with pulmonology to further assess. 10. For anxiety the patient will be given a limited supply of Xanax 0.25 mg 1 pill daily as needed for anxiety. Recommendation is for the patient follow up with his PCP to further evaluate. Diet: ADA Activity: Fall precautions Time spent managing pt's care (in minutes): 55
[2017-12-28 14:20] VITALS: BP 131/76; TEMP 97.7
[2017-12-28] MEDS ORDERED: LISINOPRIL 5 MG TAB PO SCH (21:00)
[2017-12-28] MEDS ORDERED: TAMSULOSIN 0.4 MG SR CAP PO SCH (21:00)
[2017-12-28] MEDS ORDERED: ATORVASTATIN 10 MG TAB PO SCH (21:00)
[2017-12-31 03:44] LABS: HBsAG Nonreactive (Nonreactive); Hepatitis A IgM Antibody Nonreactive
== END 2017-12-28 15:50 | disposition home or self-care (01) ==
LOC: ER 20:05 → ERHOLD 12-28 01:14 → 2ND 12-28 02:12
PROVIDERS: ADMIT Internal Medicine; ATTEND Internal Medicine
DX: R06.00 Dyspnea, unspecified (principal); E11.9 Type 2 diabetes mellitus without complications; N40.0 Benign prostatic hyperplasia without lower urinary tract symptoms; E78.5 Hyperlipidemia, unspecified; G47.33 Obstructive sleep apnea (adult) (pediatric); F41.9 Anxiety disorder, unspecified; I27.20 Pulmonary hypertension, unspecified; E04.1 Nontoxic single thyroid nodule; E66.9 Obesity, unspecified; Z68.35 Body mass index [BMI] 35.0-35.9, adult; R79.89 Other specified abnormal findings of blood chemistry
CPT/HCPCS: 36415; 71045; 71275; 80048; 80061; 80074; 80076; 80307 ×8; 81003; 82550; 82553; 82962 ×2; 83036; 83735; 83880; 84439; 84443; 84484; 85025; 85610; 85730; 93005; 94640; 94660; 94760 ×2; 96372; 99285; G0378 ×2; J1650 ×2; Q9967